=== PATIENT | female | born 1945 | race Caucasian/White ===

== ENCOUNTER 2016-09-16 10:38 | Emergency (ER) | payer BC, MEDICARE, OTHER ==
[2016-09-16] MEDS ORDERED: Diph,Pert(Acell),Tet Vac 0.5 ML SYR IM ONE (10:58)
--- NOTE | 2016-09-16 11:04 | Emergency Department Record ---
History of Present Illness - General Chief Complaint: Animal Bite Stated Complaint: CAT BITE Time Seen by Provider: 09/16/16 10:46 Source: Patient Mode of Arrival: Ambulatory Limitations: No limitations - History of Present Illness Initial Comments: The patient is here due to getting clawed by a cat at work at the [employer] an hour ago. She immediately washed the wounds with surgical scrub. Her Td is not UTD. She denies any numbness, tingling or weakness. Complaint: Animal-related injury Onset/Timin -: Minutes(s) Animal: Cat Description: Household pet, Immunizations UTD Mechanism: Scratch Pain Description: Sharp Context: Provoked Associated Symptoms: Bleeding, Other - Related Data Home Medications Medication Instructions Recorded Confirmed Last Taken Levothyroxine Sodium [Synthroid] 150 mcg PO DAILY 12/26/14 09/16/16 12/26/14 Clonidine HCl [Clonidine HCl] 0.2 mg PO DAILY 09/16/16 09/16/16 Unknown Losartan/Hydrochlorothiazide 1 tab PO DAILY 09/16/16 09/16/16 Unknown [Losartan-Hctz 100-25 mg Tab] Previous Rx's Medication Instructions Recorded Ciprofloxacin HCl [Cipro] 500 mg PO Q12HR #10 tablet 09/16/16 Clindamycin HCl [Cleocin HCl] 300 mg PO QID #20 capsule 09/16/16 Allergies Allergy/AdvReac Type Severity Reaction Status Date / Time Penicillins Allergy HIVES Verified 12/26/14 12:49 Travel Screening - Travel/Exposure Within Last 30 Days Have you traveled within the last 30 days?: No Review of Systems Constitutional: Denies: Chills, Fever Past Medical History - SOCIAL HISTORY Smoking Status: Never smoker Alcohol Use: None Drug Use: None - RESPIRATORY Hx Respiratory Disorders: No - CARDIOVASCULAR Hx Cardio Disorders: No - NEURO Hx Neuro Disorders: No - GI Hx GI Disorders: No - Hx Genitourinary Disorders: No - ENDOCRINE Hx Endocrine Disorders: Yes Hx Thyroid Disease: Yes - MUSCULOSKELETAL Hx Musculoskeletal Disorders: No - PSYCH Hx Psych Problems: No - HEMATOLOGY/ONCOLOGY Hx Hematology/Oncology Disorders: No Family Medical History Any Significant Family History?: No Physical Exam - General General Appearance: Alert, Cooperative, No acute distress - Head Head exam: Atraumatic, Normocephalic, Normal inspection - Eye Eye exam: Normal appearance, PERRL - Extremities Extremities exam: Full ROM, Normal capillary refill, Tenderness (There is mild tenderness at the injury sites.), Other (The R hand is NVI.). negative: Normal inspection (There are 3 superficial wounds to the R forearm and dorsal hand. There is a mild hematoma under the R dorsal hand wound. ) Image of Full Body: 1 - 4 mm superficial PW with no hematoma. Image of Hand: 1 - 2mm PW with a mild one cm hematoma surrounding the wound. 2 - 4 mm superficial scratch with no swelling. Course Vital Signs 09/16/16 10:41 Temperature 97.9 F Pulse Rate 74 Respiratory 18 Rate Blood Pressure 165/105 Pulse Ox 98 - Reevaluation(s) Reevaluation #1: Procedure note: The 3 wounds were cleansed with alcohol swabs and scrubbed with betadine and sterile saline. They were then dressed with Abx ointment and a bandage. 09/16/16 11:04 Reevaluation #2: I did explain to the patient the need to keep the wounds dry for 24 hours then wash gently with soap and water and dress with Abx ointment. She is to return to the ER for any signs of infection. 09/16/16 11:10 Disposition Disposition: Discharge Clinical Impression: Cat scratch Disposition: Home, Self-Care Condition: (1) Good Instructions: Animal Bite (ED) Additional Instructions: Please keep the wounds dry for 24 hours then wash gently with soap and water daily and dress with Abx ointment. Take the Cipro and Clindamycin as directed. Please return to the ER for any signs of infection. Prescriptions: Ciprofloxacin HCl [Cipro] 500 mg PO Q12HR #10 tablet Clindamycin HCl [Cleocin HCl] 300 mg PO QID #20 capsule Forms: Patient Portal Access Time of Disposition: 11:12
== END 2016-09-16 11:16 | disposition home or self-care (01) ==
LOC: ER 10:38
DX: S61.431A Puncture wound without foreign body of right hand, initial encounter (principal); S51.831A Puncture wound without foreign body of right forearm, initial encounter; S60.221A Contusion of right hand, initial encounter; W55.03XA Scratched by cat, initial encounter; Y93.K9 Activity, other involving animal care; Y92.89 Other specified places as the place of occurrence of the external cause; Y99.0 Civilian activity done for income or pay
CPT/HCPCS: 90715; 96372; 99283

== ENCOUNTER 2016-12-23 11:00 | Inpatient (IN) | payer BC ==
[2017-01-08] MEDS ORDERED: METOCLOPRAMIDE 10 MG TABLET PO ONE (06:00)
[2017-01-08] MEDS ORDERED: ACETAMINOPHEN 1,000 MG/100 ML BTL IV ONE (06:00)
[2017-01-08] MEDS ORDERED: CLINDAMYCIN 600MG/50ML PREMIX 600 MG/50 ML BAG IVPB ONE (06:00)
[2017-01-08] MEDS ORDERED: CELECOXIB 100 MG CAPSULE PO ONE (06:00)
[2017-01-08] MEDS ORDERED: VANCOMYCIN HCL 1,000 MG in 0.9 % SODIUM CHLORIDE 250ML 250 ML IVPB ONE ×2 (06:00→21:00)
[2017-01-08] MEDS ORDERED: MECLIZINE 25 MG TABLET PO ONE (06:00)
[2017-01-08] MEDS ORDERED: FAMOTIDINE 20MG TABLET PO ONE (06:00)
[2017-01-08] MEDS ORDERED: MAGNESIUM HYDROXIDE 30 ML UDC PO PRN (12:45)
[2017-01-08] MEDS ORDERED: DIPHENHYDRAMINE HCL 25 MG CAPSULE PO PRN (12:45)
[2017-01-08] MEDS ORDERED: METOCLOPRAMIDE HCL 10 MG/2 ML VIAL IVP PRN (12:45)
[2017-01-08] MEDS ORDERED: ZOLPIDEM TARTRATE 5 MG TABLET PO PRN (12:45)
[2017-01-08] MEDS ORDERED: SENNOSIDES/DOCUSATE SODIUM UD CAPSULE PO PRN (12:45)
[2017-01-08] MEDS ORDERED: OXYCODONE HCL 5 MG TABLET PO PRN (12:45)
[2017-01-08] MEDS ORDERED: ONDANSETRON HCL IV 4 MG/2 ML VIAL IVP PRN (12:45)
[2017-01-08] MEDS ORDERED: TRAMADOL HCL 50 MG TABLET PO PRN (12:45)
[2017-01-08] MEDS ORDERED: AL HYDROX/MAG HYDROX 30ML UD PO PRN (12:45)
[2017-01-08] MEDS ORDERED: TRANEXAMIC ACID 1,000 MG in 0.9 % SODIUM CHLORIDE 100ML 100 ML IVPB ONE (13:00)
[2017-01-08] MEDS: OXYCODONE HCL 5 MG TABLET PO PRN ×2 (13:28→18:41)
[2017-01-08] MEDS: ACETAMINOPHEN 1,000 MG/100 ML BTL IV SCH ×2 (13:31→21:21)
[2017-01-08] MEDS ORDERED: BUPIVACAINE LIPOSOME 266MG/20ML VIAL IV ONE (14:02)
[2017-01-08] MEDS ORDERED: TRANEXAMIC ACID 1,000 MG/10 ML ML IV ONE (14:02)
[2017-01-08] MEDS ORDERED: BUPIVACAINE 0.25% W/EPI MPF 30ML VIAL IVP ONE (14:02)
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
[2017-01-08] MEDS: RINGERS SOLUTION,LACTATED 1,000 ML IV SCH (14:03)
--- NOTE | 2017-01-08 14:10 | Operative Note ---
DATE OF SURGERY: 01/08/2017 Surgeon: Manuel Puente DO PREOPERATIVE DIAGNOSIS: Primary osteoarthritis of the left knee. POSTOPERATIVE DIAGNOSIS: Primary osteoarthritis of the left knee. OPERATION: Left total knee arthroplasty. DESCRIPTION OF PROCEDURE: This 71-year-old female was taken to the operating room and placed in the supine position on the operating room table after spinal anesthesia was induced by the department of anesthesia. The left lower extremity was then elevated. It was prepped with Hibiclens and draped in the usual sterile fashion. Exsanguinated and the tourniquet inflated to 300 mmHg. All scrub personnel wore personal isolation suits. An anterior longitudinal midline incision was made followed by a medial parapatellar arthrotomy incision. An intracondylar drill hole was made for the intramedullary alignment gurvinder and a 5-degree valgus 9 mm cut was made in the distal femur. The wafers of bone were removed. The sizing jig was affixed, and a size 65 was seen to be the appropriate size and anterior-posterior dimension but a 62.5 in the medial-lateral direction. Therefore, the pin sites were moved 2 mm anteriorly and the 62.5 four-in-one cutting block was pinned in 3 degrees of external rotation. The appropriate cuts were made and the wafers of bone were removed. The extramedullary alignment guide was used to cut the proximal tibia. With the cutting block pinned in the appropriate position, a 3-degree posterior slope cut was made. We referenced a 10 mm cut off the lateral tibial plateau. The wafer of bone was removed and remnants of the menisci and osteophytes were removed from the posterior aspect of the joint. The tibia was sized to a size 71 and a stem punch was used. The wound was then copiously irrigated with pulse lavage, lactated Ringer's solution. Tissue tensing device was used to confirm balance in flexion and extension. Subsequently, trial components were inserted and a 14 bearing seemed to give us the best stabilization throughout the full range of motion. The patella was then cut and restored to anatomic height with a 34 x 7.8 mm trial and the knee taken through range of motion and found to be stable. All trial components were then removed and the wound copiously irrigated with pulse lavage, lactated Ringer's solution. Exparel was injected in the posterior, medial, and lateral corners of the joint. After implantation of all components, the remainder was injected into the periosteum and joint capsule of the proximal tibia and distal femur. All bony surfaces were dried and all were cemented and excess cement removed after the insertion of the component. Initially the 71 tibial baseplate was cemented into place followed by the insertion of the 14 mm tibial bearing and the femur and finally the patella. Once the cement had hardened, the knee was again taken through range of motion and found to be stable. A drain was placed through a separate stab incision, and the arthrotomy incision was closed with a #2 Vicryl. The subcutaneous tissue was closed with 0 Vicryl and the skin was stapled. Polar Care was applied. The patient was taken to the recovery room in satisfactory condition. GROSS PATHOLOGY: This patient demonstrated severe osteoarthritis of the medial compartment of the patellofemoral joint with osteophytes present posteriorly. Significant sclerosis of the medial tibial plateau was present. The final components inserted were a [employer] size 62.5 cruciate retaining femoral component, a 71 tibial baseplate, a 14 mm anterior stabilized D1 bearing, and a 34 x 7.8 mm patella was used. CC: Martha HAYWOOD
[2017-01-08] MEDS ORDERED: DIPHENHYDRAMINE HCL IV 50 MG/ML VIAL IVP ONE (15:49)
[2017-01-08] MEDS ORDERED: HYDROMORPHONE HCL 2 MG/ML VIAL IV ONE (15:49)
[2017-01-08] MEDS ORDERED: LIDOCAINE 2% MDV (20MG/ML) 20ML VIAL IV ONE (15:49)
[2017-01-08] MEDS ORDERED: MIDAZOLAM HCL 2MG/2ML VIAL IV ONE (15:49)
[2017-01-08] MEDS ORDERED: PROPOFOL 10 MG/ML VIAL IV ONE (15:49)
[2017-01-08] MEDS ORDERED: FENTANYL PF 100MCG/2ML VIAL IV ONE (15:49)
[2017-01-08] MEDS: TRAMADOL HCL 50 MG TABLET PO PRN (16:00)
[2017-01-08] MEDS: PATIENT OWN MED: OMEPRAZOLE 20 MG PO SCH (17:36)
[2017-01-08] MEDS: HYDROMORPHONE HCL 1 MG/ML CPJ IVP PRN ×3 (20:51→22:56)
[2017-01-08] MEDS: ASPIRIN 325 MG TAB ENTERIC-COATED PO SCH (21:24)
[2017-01-08] MEDS ORDERED: PATIENT OWN MED: CLONIDINE 0.2 MG PO SCH (22:00)
[2017-01-09] MEDS: ACETAMINOPHEN 1,000 MG/100 ML BTL IV SCH (02:57)
[2017-01-09] MEDS: TRAMADOL HCL 50 MG TABLET PO PRN (04:28)
[2017-01-09] MEDS ORDERED: PATIENT OWN MED: LEVOTHYROXINE 100 MCG PO SCH (07:00)
[2017-01-09] MEDS ORDERED: HCTZ PO SCH (10:00)
[2017-01-09] MEDS ORDERED: LOSARTAN PO SCH (10:00)
[2017-01-09] MEDS: ASPIRIN 325 MG TAB ENTERIC-COATED PO SCH (10:13)
[2017-01-09] MEDS: RINGERS SOLUTION,LACTATED 1,000 ML IV SCH (10:46)
--- NOTE | 2017-01-09 11:44 | Physical Therapy Tx Note ---
Physical Therapy Tx Note - Treatment Note Tolerated: Good (Patient had an issue with BP dropping this am when got up to go to bathroom with nursing. As a result has not had any pain med so pain fairly high when PT went in to work with patient. Able to perform some exercises seated but a lot of pain in knee. Later patient able to walk but very slow and difficult for her to weightbear on UES for any distance, has a lot of pain yet in left knee.) Total Time Spent With Patient: 30 Physical Therapy Tx Note: Detail (Patient sitting in chair when entered room first time. BP better than earlier but patient still diaphoretic so wanted to wait to walk but willing to do some exercises for knee seated. Able to do leg lift, quad set, LAQ and ankle pumps. Came back later for gait, patient able to move sit to stand with cues for pushing up from arms of chair and mod assist of one. Had difficulty getting left knee to straighten at first. Stood for a time then knee relaxed and patient able to walk about 60 feet to door for stairs then turned around and walked back to bathroom in room, sat for several minutes. Assisted to stand mod assist of one then ambulated back to bed and assisted into bed, mod assist of one. Up in bed more difficult for patient today and caused some knee pain but finally able to scoot up in bed. OT waiting to see patient so did not move everything close but re-attached CPM, cryocuff and compressive stockings.) Physical Therapy Problem List: Detail (Patient has decreased mobility, gait, motion left knee secondary to knee surgery. Not able to walk yet even with walker, but should improve quickly.) Physical Therapy Goals: Patient will be independent with bed mobility, exercises , gait for short distances so safe to go home. We will also practice stairs even though patient has ramp at home to walk up to get into house. Prognosis: Good (Patient did not tolerate WB as much as 50% and difficult for her to weightbear through UES yet. Needs more gait practice and not sure we will be able to do stairs today. Patient does have ramp and may suggest that sister and push patient up ramp in wheelchair then step over threshold with walker.) Physical Therapy Plan: Continue PT BID tomorrow and progress gait, exercises, ROM, functional mobility so can go home safely with family.
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
[2017-01-09] MEDS: FLU VAC QS 2017-18 (INPT, 6MO+) 60MCG/0.5ML IM ONE ×2 (12:41→16:36)
[2017-01-09] MEDS ORDERED: OXYCODONE/APAP 7.5MG/325MG TABLET PO PRN ×2 (12:45)
[2017-01-09] MEDS ORDERED: HYDROCODONE/APAP 7.5/325MG TABLET PO PRN ×2 (12:45)
[2017-01-09] MEDS ORDERED: ACETAMINOPHEN 325 MG TAB PO PRN (12:45)
--- NOTE | 2017-01-09 15:16 | Physical Therapy Tx Note ---
Physical Therapy Tx Note - Treatment Note Tolerated: Good (Patient in bed when entered room but says did sit up EOB for lunch and has been up several times to bathroom with nursing. Worked on exercises in bed after removed CPM machine, cryocuff, compressive stockings. Able to do heel slides, SLR, SAQ, quad, ham and glut sets. Supine to sit with min assist of one, sit to stand with CGA and cues, then ambulated to bathroom with FWW and CGA, able to sit on BSC over toilet seat with better tolerance than just toilet seat. Patient actually able to ambulate steps today: down three steps then up three steps with mod assist of two for safety.) Physical Therapy Tx Note: Detail (Patient seen bedside, in bed so did exercises in bed first as above with good tolerance. Supine to sit with min assist of one then sit to stand with CGA and FWW; able to ambulate to bathroom with FWW and use toilet then sit to stand and washed hands with CGA only and FWW. Ambulated to stairs with WBAT L LE , able to ambulate down three steps and up three steps with verbal cues, correct technique using rail and folded walker, mod assist of two for safety but correct technique. Patient requested to be wheeled back to room in wheelchair as extremely fatigued now. Transferred to bed easily with FWW and CGA, replaced CPM on bed and re-attached leg then cryocuff, compressive stockings in place. Call light and tray table close for patient.) Physical Therapy Problem List: Detail (Patient has decreased mobility, gait, motion left knee secondary to knee surgery. Not able to walk yet even with walker, but should improve quickly.) Physical Therapy Goals: Patient will be independent with bed mobility, exercises , gait for short distances so safe to go home. We will also practice stairs even though patient has ramp at home to walk up to get into house. Prognosis: Good (Patient has passed all skills for discharge from PT but she is still very weak with walking and knee ROM quite impaired yet. Patient promises to do all exercises over weekend so ready for OP PT on Thursday. Family to take her to her home and has a ramp that they can wheel her up to door when first goes home and then walk over threshold with walker. She could stand another night in hospital to get stronger, but that is up to Dr. Puente.) Physical Therapy Plan: Continue PT BID tomorrow and progress gait, exercises, ROM, functional mobility so can go home safely with family.
[2017-01-09] MEDS: PATIENT OWN MED: OMEPRAZOLE 20 MG PO SCH (17:45)
--- NOTE | 2017-01-12 12:40 | Discharge Summary ---
DATE OF ADMISSION: 01/08/2017 DATE OF DISCHARGE: 01/09/2017 ADMITTING DIAGNOSIS: Osteoarthritis of the left knee. DISCHARGE DIAGNOSIS: Osteoarthritis of the left knee. OPERATIVE PROCEDURE: Left total knee arthroplasty. DESCRIPTION: This 71-year-old female was admitted to the hospital for elective total knee arthroplasty and tolerated the operative procedure well. Did well with physical therapy and was ready for discharge. The patient's pain was controlled with Percocet. She will have outpatient physical therapy. She was instructed to use the JAX hose as tolerated. She will take aspirin 325 mg b.i.d. She was given a prescription for 60 Percocet 7.5/325 one or two every 6 hours as necessary for pain. Routine wound care instructions were given. She will follow up in the office in 2 weeks. Should she have any problems prior to being seen, she was instructed to call my office. ZENON
== END 2017-01-09 17:47 | disposition home or self-care (01) | DRG 470 ==
LOC: MEDSURG 01-08 07:20
PROVIDERS: ADMIT Orthopaedic Surgery; ATTEND Orthopaedic Surgery
PROC: 0SRD069 Replacement of Left Knee Joint with Oxidized Zirconium on Polyethylene Synthetic Substitute, Cemented, Open Approach (ICD-10-PCS; principal; 2017-01-08 09:30)
DX: M17.12 Unilateral primary osteoarthritis, left knee (principal); I10 Essential (primary) hypertension
CPT/HCPCS: 90686; 93005; 93010; 97110; 97116; 97165; J1170; J1200; J7050; J7120

== ENCOUNTER 2017-07-02 11:41 | Emergency (ER) | payer BC ==
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
[2017-07-02 12:16] LABS: HEMATOCRIT 41.2 % (35.0-47.0); HEMOGLOBIN 14.4 gm/dl (11.6-16.0); MEAN CELL VOLUME 87.7 fl (81-97); MEAN CORPUSCULAR HEMOGLOBIN 30.6 pg (27-33); MEAN PLATELET VOLUME 11.7 fl (7.4-10.4); PLATELET COUNT 286 K/uL (130-400); RED CELL DISTRIBUTION WIDTH 13.7 % (11.5-14.5); WHITE BLOOD COUNT W/O DIFF 9.2 K/uL (4.2-12.2)
[2017-07-02 12:23] LABS: BLOOD UREA NITROGEN 104 mg/dL (8-23); CREATININE 1.8 mg/dL (0.5-0.9); EST GLOMERULAR FILTRATION RATE 29 mL/min; PLATELET ESTIMATE NORMAL (NORMAL); TOTAL PROTEIN 7.9 g/dL (6.6-8.7)
[2017-07-02 12:25] LABS: GLUCOSE,RANDOM 147 mg/dL (74-109)
[2017-07-02 12:28] LABS: ALB/GLOB RATIO 1.2 (1.1-1.8); ALBUMIN 4.3 g/dL (4.0-5.0); ALKALINE PHOSPHATASE 67 U/L (35-104); ALT/SGPT 15 U/L (<33); AST/SGOT 18 U/L (10.0-35.0)
[2017-07-02] MEDS ORDERED: 0.9 % SODIUM CHLORIDE 1,000 ML BAG IV ONE (12:44)
[2017-07-02 13:17] LABS: URINE APPEARANCE CLEAR; URINE BILIRUBIN NEGATIVE (NEGATIVE); URINE BLOOD TRACE-I (NEGATIVE); URINE COLOR YELLOW; URINE GLUCOSE (UA) NEGATIVE (NEGATIVE); URINE KETONE NEGATIVE (NEGATIVE); URINE LEUKOCYTE ESTERASE SMALL (NEGATIVE); URINE NITRITE NEGATIVE (NEGATIVE); URINE PROTEIN NEGATIVE (NEGATIVE); URINE UROBILINOGEN 0.2 E.U./dL (0.20 - 1.00)
[2017-07-02 13:45] LABS: URINE BACTERIA FEW SEEN
[2017-07-02] MEDS ORDERED: CEFAZOLIN 2 Gram 2 GM/50 ML BAG IVPB ONE (14:44)
--- NOTE | 2017-07-03 08:08 | CT SCAN REPORT ---
EXAM: EMERGENCY HEAD CT WITHOUT CONTRAST HISTORY: SYNCOPE. TECHNIQUE: Axial CT scan of the head was performed without IV contrast. Comparison: None. FINDINGS: No definite acute intracranial hemorrhage identified. No focal mass effect or midline shift apparent. Mild generalized atrophy with some chronic appearing deep white matter changes, nonspecific, but likely representing some chronic small vessel deep white matter ischemic disease. No definite acute infarct or intracranial mass lesion is seen. Small lacunar infarct in the left thalamus. IMPRESSION: 1. GENERALIZED ATROPHY WITH MILD CHRONIC APPEARING DEEP WHITE MATTER CHANGES AND A SMALL CHRONIC LACUNAR INFARCT IN THE LEFT THALAMUS. 2. NO DEFINITE ACUTE INTRACRANIAL HEMORRHAGE OR FOCAL MASS EFFECT IDENTIFIED. JOB NUMBER: [id number] MTDD
--- NOTE | 2017-07-03 08:23 | CT SCAN REPORT ---
EXAM: CHEST CT WITHOUT CONTRAST HISTORY: SYNCOPE, CHEST AND BACK PAIN. TECHNIQUE: Axial CT scan of the chest was performed without IV contrast. Comparison: No prior chest CT. No prior chest x-ray. FINDINGS: No pneumothorax identified. No acute infiltrate identified. Tiny nodule in the tip of the right posterior costophrenic angle appears unchanged from before and is likely a tiny granuloma. No pleural or pericardial effusion evident. Some coronary artery calcification is present. 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 Postop changes in the right humeral head. Coronary artery calcification is present. The heart size is normal. Mild aneurysmal dilatation of the ascending aorta measuring up to about 4.5 cm in diameter. The abdominal aorta is not fully evaluated without IV contrast, but no gross evidence of a dissection identified. The descending thoracic aorta is of normal caliber as is the visualized upper abdominal aorta. Small hiatal hernia. Probable upper pole right renal cyst also seen on the prior abdomen CT of 02/27/12. IMPRESSION: 1. SOME CORONARY ARTERY CALCIFICATION IS PRESENT. 2. MILD ANEURYSMAL DILATATION OF THE ASCENDING AORTA TO A DIAMETER OF ABOUT 4.5 CM. 3. 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 4. SMALL HIATAL HERNIA. 5. TINY STABLE GRANULOMA IN THE RIGHT POSTERIOR COSTOPHRENIC ANGLE. 6. APPARENT SMALL CYST ANTERIORLY RIGHT KIDNEY ALSO PRESENT ON THE 02/27/12. JOB NUMBER: [id number] MTDD
--- NOTE | 2017-07-03 08:30 | US VENOUS DOPPLER REPORT ---
EXAM: EMERGENCY VENOUS DOPPLER ULTRASOUND OF THE RIGHT LOWER EXTREMITY HISTORY: HISTORY OF VENOUS INSUFFICIENCY, RIGHT LEG SWELLING AND REDNESS, POSSIBLE DVT. TECHNIQUE: Venous Doppler ultrasound of the right lower extremity was performed utilizing color flow and spectral analysis. Compression and flow augmentation maneuvers were utilized in the thigh and popliteal region as well. Comparison: None. FINDINGS: The common and superficial femoral veins in the right thigh appeared unremarkable with compression and flow augmentation seen and no thrombus evident. The right popliteal vein also demonstrates flow with flow augmentation and compression evident with no DVT evident. Within the calf flow is seen in single anterior and posterior tibial veins as well as a single peroneal vein with no DVT evident. In the region of the calf there did appear to be superficial collateral veins as well as possibly some echogenic clot in some of the superficial veins of the right calf. IMPRESSION: 1. NO DVT IDENTIFIED ON THE RIGHT. 2. THERE DID APPEAR TO BE COLLATERAL VEINS IN THE RIGHT CALF WELL POSSIBLY SOME THROMBUS IN SOME OF THE SUPERFICIAL VEINS OF THE RIGHT CALF NEAR THE KNEE. JOB NUMBER: [id number] MTDD
== END 2017-07-02 17:36 | disposition short-term general hospital (02) ==
LOC: ER 11:41
DX: R55 Syncope and collapse (principal); I71.2 Thoracic aortic aneurysm, without rupture; R79.89 Other specified abnormal findings of blood chemistry; L03.115 Cellulitis of right lower limb; R74.8 Abnormal levels of other serum enzymes; I10 Essential (primary) hypertension; Z86.718 Personal history of other venous thrombosis and embolism
CPT/HCPCS: 99285 ×2; 96365; 96361; 83735; 80053; 81001; 84484; 85027; 93971; 71250; 70450; 93005; 93010; J0690; J7030

== ENCOUNTER 2017-08-15 15:47 | Emergency (ER) | payer BC ==
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
[2017-08-15] MEDS ORDERED: DIPHENHYDRAMINE HCL 50 MG/ML VIAL IM ONE (16:27)
[2017-08-15 16:29] LABS: BASO % 0.4 % (0-6); EOS % 4.3 % (0-6); GRAN % 73.3 % (47-80); HEMATOCRIT 37.1 % (35.0-47.0); HEMOGLOBIN 12.3 gm/dl (11.6-16.0); LYMPH % 14.2 % (16-45); MEAN CELL VOLUME 91.6 fl (81-97); MEAN CORPUSCULAR HEMOGLOBIN 30.4 pg (27-33); MEAN CORPUSCULAR HGB CONC 33.2 g/dl (32-36); MEAN PLATELET VOLUME 10.1 fl (7.4-10.4); MONO % 7.8 % (0-9); PLATELET COUNT 284 K/uL (130-400); RED BLOOD COUNT 4.05 M/uL (3.80-5.40); RED CELL DISTRIBUTION WIDTH 14.4 % (11.5-14.5); WHITE BLOOD COUNT W/O DIFF 9.6 K/uL (4.2-12.2)
== END 2017-08-15 17:03 | disposition home or self-care (01) ==
LOC: ER 15:47
DX: L50.0 Allergic urticaria (principal); T36.1X5A Adverse effect of cephalosporins and other beta-lactam antibiotics, initial encounter
CPT/HCPCS: 80048; 85025; 96372; 99283; 99284; J1200

== ENCOUNTER 2017-08-28 09:32 | Emergency (ER) | payer BC ==
[2017-08-28] MEDS ORDERED: PREDNISONE 20 MG TAB PO ONE (09:38)
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
== END 2017-08-28 09:53 | disposition home or self-care (01) ==
LOC: ER 09:32
DX: L50.0 Allergic urticaria (principal)
CPT/HCPCS: 99282; J7512